=== PATIENT | female | born 1990 | race Caucasian/White ===

== ENCOUNTER 2020-10-12 22:55 | Emergency (ER) | payer MEDICAID, OTHER ==
--- NOTE | 2020-10-12 23:39 | EDM.PDOC ---
ED HPI GENERAL MEDICAL PROBLEM - General Chief Complaint: Back Pain or Injury Time Seen by Provider: 10/12/20 23:28 - History of Present Illness INITIAL COMMENTS - FREE TEXT/NARRATIVE: History of present illness: [] Patient fell and injured her low back especially on the right side. It occurred 3 days ago. It was a trip. She did not pass out. She has no other injury. She has no neurologic complaint but there is a hot feeling in her back with pain is worse with movement. It is gradually progressive over the last 3 days. She is no longer adhering to her gabapentin regimen for neuropathy because she has moved. She is on an insulin pump for diabetes. The pain radiates down her right hip. Review of systems: As per history of present illness and below otherwise all systems reviewed and negative. Past medical history: As per history of present illness and as reviewed below otherwise noncontributory. Surgical history: As per history of present illness and as reviewed below otherwise noncontributory. Social history: No reported history of drug or alcohol abuse. Family history: As per history of present illness and as reviewed below otherwise noncontributory. Physical exam: Constitutional - well developed, well-nourished and in no acute distress HEENT - normocephalic, no evidence of trauma - external nose and mouth normal - no mass in neck and no JVD - mucosae moist EYES - full EOM, PERRL, no icterus - no evidence of inflammation, injection, or drainage Respiratory - no respiratory distress, equal bilateral expansion, lungs clear to auscultation and no abnormal lung sounds Cardiovascular - Regular Rhythm with S1 and S2 appreciated and no murmur, gallop or rub. GI - abdomen soft without distension or organomegaly - normal bowel sounds - no guard or rebound Musculoskeletal straight leg raise of the right leg causes pain right lower back. Left leg does not cause any crossover. No gross deformity of long bones or joints - no tenderness, swelling or edema Neurologic -DTR right equal left. Whenever said that alert and oriented times four - CN II-XII grossly intact - motor sensory and coordination symmetrically normal Psychiatric - appropriate mood and affect with normal thought content Hematologic - No petechiae or purpura - mucosa appropriate color and sclera not pale - normal nail bed color and refill Integument - no rash or evidence of trauma - normal turgor Diagnostics: [] Therapeutics: [] Impression: [] Plan: [] Definitive disposition and diagnosis as appropriate pending reevaluation and review of above. back Pain Score (Numeric/FACES): 8 - Related Data Allergies Allergy/AdvReac Type Severity Reaction Status Date / Time promethazine HCl Allergy Seizure Verified 10/12/20 23:26 [From Phenergan] Sulfa (Sulfonamide Allergy Swelling Verified 10/12/20 23:26 Antibiotics) Home Meds: Home Meds Subcutaneous Insulin Pump [Insulin Pump] 1 each MC ASDIRECTED 10/01/13 [History] Acetaminophen/oxyCODONE [Percocet 325-10 MG] 1 - 2 tab PO Q6H PRN #14 tab 10/13/20 [Rx] diazePAM [Valium] 5 mg PO TID PRN #15 tab 10/13/20 [Rx] methylPREDNISolone [Medrol Dose Pack] 4 mg PO DAILY #21 tab 10/13/20 [Rx] Past Medical History HEENT History: Reports: None Cardiovascular History: Reports: None Respiratory History: Reports: None Gastrointestinal History: Reports: None Genitourinary History: Reports: None PLANNING CONSULTANT History: Reports: None Musculoskeletal History: Reports: None Neurological History: Reports: None Psychiatric History: Reports: None Endocrine/Metabolic History: Reports: Diabetes, Type I 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 ED EXAM, GENERAL - Physical Exam Exam: See Below (Okay signing trying to finish my chart my chart on one is complete okay so threes transfer okay except this year. A big burden thank you there is no light right flank pain radiating to groin she refused a blood pressure my physical exam is in the HPI she is okay taking the [place] because of her prio) Free Text/Narrative:: My physical exam is in the HPI Course - Vital Signs Last Recorded V/S: Last Vital Signs Temp 36.2 C 10/12/20 23:25 Pulse 96 10/12/20 23:25 Resp 18 10/12/20 23:25 BP 121/91 H 10/12/20 23:25 Pulse Ox 97 10/12/20 23:25 - Orders/Labs/Meds Labs: Laboratory Tests 10/12/20 10/12/20 Range/Units 21:30 21:30 Urine Color YELLOW Urine Appearance CLEAR Urine pH 5.5 (5.0-8.0) Ur Specific [place] 1.015 (1.001-1.035) Urine Protein NEGATIVE (NEGATIVE) mg/dL Urine Glucose (UA) >=1000 (NEGATIVE) mg/dL Urine Ketones 15 H (NEGATIVE) mg/dL Urine Occult Blood NEGATIVE (NEGATIVE) Urine Nitrite NEGATIVE (NEGATIVE) Urine Bilirubin NEGATIVE (NEGATIVE) Urine Urobilinogen 0.2 (<2.0) EU/dL Ur Leukocyte Esterase NEGATIVE (NEGATIVE) Urine RBC 0-2 (0-2/HPF) Urine WBC 1-3 (0-5/HPF) Ur Epithelial Cells FEW (NONE-FEW) Urine Bacteria FEW (NEGATIVE) Urine Mucus LIGHT (NONE-MOD) Urine HCG, Qual NEGATIVE (NEGATIVE) Meds: Medications Discontinued Medications Generic Name Dose Route Start Last Admin Trade Name Freq PRN Reason Stop Dose Admin Diazepam 5 mg 10/13/20 01:45 Diazepam 2 Mg Tab PO 10/13/20 01:46 ONETIME ONE Gabapentin 300 mg 10/12/20 23:46 10/13/20 00:28 Gabapentin 300 Mg Cap PO 10/12/20 23:47 300 mg ONETIME ONE Administration Ketorolac Tromethamine 30 mg 10/12/20 23:46 10/13/20 00:01 Ketorolac 30 Mg/Ml Sdv IM 10/12/20 23:47 30 mg ONETIME ONE Administration Oxycodone/Acetaminophen 1 tab 10/13/20 01:45 Acetaminophen/Oxycodone 325-10 Mg Tab PO 10/13/20 01:46 ONETIME ONE Departure - Departure Time of Disposition: 02:05 Disposition: Home, Self-Care 01 Clinical Impression: Back contusion, Contusion, hip - Discharge Information Prescriptions: methylPREDNISolone [Medrol Dose Pack] 4 mg PO DAILY #21 tab Acetaminophen/oxyCODONE [Percocet 325-10 MG] 1 - 2 tab PO Q6H PRN #14 tab PRN Reason: Pain (Severe 7-10) diazePAM [Valium] 5 mg PO TID PRN #15 tab PRN Reason: Headache Instructions: Muscle Strain, [id number], Contusion, [id number] Referrals: PCP,Not In Area [Primary Care Provider] - Forms: ED Department Discharge Additional Instructions: [facility] [address] [place] [address] [facility] [address] [place] [id number] The following information is given to patients seen in the emergency department who are being discharged to home. This information is to outline your options for follow-up care. We provide all patients seen in our emergency department with a follow-up referral. The need for follow-up, as well as the timing and circumstances, are variable depending upon the specifics of your emergency department visit. If you don't have a primary care physician on staff, we will provide you with a referral. We always advise you to contact your personal physician following an emergency department visit to inform them of the circumstance of the visit and for follow-up with them and/or the need for any referrals to a consulting specialist. The emergency department will also refer you to a specialist when appropriate. This referral assures that you have the opportunity for follow-up care with a specialist. All of these measure are taken in an effort to provide you with optimal care, which includes your follow-up. Under all circumstances we always encourage you to contact your private physician who remains a resource for coordinating your care. When calling for follow-up care, please make the office aware that this follow-up is from your recent emergency room visit. If for any reason you are refused follow-up, please contact the [facility] Emergency Department at and asked to speak to the emergency department charge nurse. Sepsis Event Note (ED) - Evaluation Sepsis Screening Result: No Definite Risk - Focused Exam Vital Signs: Vital Signs Temp Pulse Resp BP Pulse Ox 10/12/20 23:25 36.2 C 96 18 121/91 H 97
[2020-10-12] MEDS ORDERED: Ketorolac 30 MG/ML SDV IM ONE (23:46)
[2020-10-12] MEDS ORDERED: Gabapentin 300 MG Cap PO ONE (23:46)
--- NOTE | 2020-10-13 01:10 | CR ---
HISTORY: Pain after injury. COMPARISON: None available. FINDINGS: A single erect AP view of the pelvis shows no sign of fracture or dislocation. The hips are normal in appearance with no significant degenerative changes. The inferior lumbar spine is normal in appearance. There is a moderate amount of fecal material distributed throughout the inferior colon and rectum consistent with constipation. There is a metallic structure located in the superior right labial region, consistent with a labial piercing. IMPRESSION: No sign of osseous injury. Findings suggesting constipation. Dictated by Phillip Boone MD @ 10/13/2020 1:08:[address] Phillip Boone @ Oct 13 2020 1:08AM
--- NOTE | 2020-10-13 01:12 | CR ---
HISTORY: Pain after injury. COMPARISON: None available. FINDINGS: The lumbar spine was examined in the upright position with AP, lateral, and lateral spot views for a total of three views. There is minimal scoliosis of the lumbar spine convex towards the right. There is no sign of fracture or subluxation. The vertebral bodies are normal in height and they are in anatomic alignment. The disc spaces are normal in height as well. The visualized bony pelvis is normal in appearance. There is a moderate amount of fecal material distributed throughout the colon and rectum consistent with constipation. A curvilinear metallic density in the right periumbilical region is consistent with an umbilical piercing. IMPRESSION: No sign of acute osseous injury. Minimal scoliosis of the lumbar spine convex towards the right. Findings suggesting constipation. Dictated by Phillip Boone MD @ 10/13/2020 1:11:[address] Phillip Boone @ Oct 13 2020 1:11AM
[2020-10-13] MEDS ORDERED: Acetaminophen/oxyCODONE 325-10 MG Tab PO ONE (01:45)
[2020-10-13] MEDS ORDERED: Diazepam 2 MG Tab PO ONE (01:45)
== END 2020-10-13 02:20 | disposition home or self-care (01) ==
LOC: MW.ED 22:55
DX: S30.0XXA Contusion of lower back and pelvis, initial encounter (principal); S70.00XA Contusion of unspecified hip, initial encounter; E10.9 Type 1 diabetes mellitus without complications; Z88.8 Allergy status to other drugs, medicaments and biological substances; Z88.2 Allergy status to sulfonamides; W19.XXXA Unspecified fall, initial encounter
CPT/HCPCS: 72100; 72170; 81001; 81025; 96372; 99283; A9270; J1885

== ENCOUNTER 2021-03-24 18:33 | Emergency (ER) | payer MEDICAID ==
[2021-03-24] MEDS ORDERED: Ibuprofen 600 MG Tab PO ONE (18:49)
[2021-03-24] MEDS ORDERED: Sodium Chloride 0.9% 10 ML Syringe FLUSH PRN (18:49)
[2021-03-24] MEDS ORDERED: Sodium Chloride 0.9% 2.5 ML Syringe FLUSH PRN (18:49)
[2021-03-24] MEDS ORDERED: Sodium Chloride 0.9% 1,000 ML IV ONE (18:49)
[2021-03-24 19:14] LABS: BLOOD UREA NITROGEN,BUN 19 mg/dL (7.0-18.0); CARBON DIOXIDE,CO2 24.4 mmol/L (21.0-32.0); CHLORIDE,CL 105 mmol/L (98-107); GLUCOSE RANDOM 177 mg/dL (74-106); POTASSIUM,K 3.7 mmol/L (3.5-5.1); SODIUM,NA 141 mmol/L (136-145)
--- NOTE | 2021-03-24 19:43 | CT ---
INDICATION: Seizure, trauma. TECHNIQUE: CT head without contrast. COMPARISON: None. FINDINGS: CSF spaces: Within normal limits for age. Brain parenchyma and extra-axial spaces: The riggs-white differentiation is normal. No sign of mass, hemorrhage, or midline shift. No extra-axial fluid collection. Skull base and calvarium: The visualized paranasal sinuses and mastoid air cells demonstrate no acute or significant findings. The visualized orbits are grossly unremarkable. No skull fractures. IMPRESSION: Unremarkable noncontrast head CT. Please note that all CT scans at this facility use dose modulation, iterative reconstruction, and/or weight-based dosing when appropriate to reduce radiation dose to as low as reasonably achievable. Dictated by Dennys John MD @ 03/24/2021 7:42:48 PM (Electronically Signed)
--- NOTE | 2021-03-24 19:43 | CT ---
INDICATION: Seizure, trauma. TECHNIQUE: CT cervical spine without contrast. COMPARISON: None. FINDINGS: Vertebrae: Alignment is normal. There are no fractures or suspicious bony lesions. Discs and facet joints: Disc spaces and facets are within normal limits. Extraspinal findings: Prevertebral soft tissues, visualized airway, and visualized lungs are unremarkable. IMPRESSION: Unremarkable cervical spine CT. Please note that all CT scans at this facility use dose modulation, iterative reconstruction, and/or weight-based dosing when appropriate to reduce radiation dose to as low as reasonably achievable. Dictated by Dennys John MD @ 03/24/2021 7:40:59 PM (Electronically Signed)
[2021-03-24] MEDS ORDERED: Acetaminophen 500 MG Tab PO ONE (19:46)
== END 2021-03-24 21:13 | disposition home or self-care (01) ==
LOC: MW.ED 18:33
DX: E10.649 Type 1 diabetes mellitus with hypoglycemia without coma (principal); E03.9 Hypothyroidism, unspecified; Z88.2 Allergy status to sulfonamides; Z88.8 Allergy status to other drugs, medicaments and biological substances
CPT/HCPCS: 36415; 70450; 72125; 80053; 80305; 80307; 82947; 84703; 85025; 93005; 99285; A9270; J7030

== ENCOUNTER 2021-05-19 01:51 | Observation (INO) | payer MEDICAID ==
[2021-05-19] MEDS ORDERED: Sodium Chloride 23.4% 154 MEQ in Dextrose 10% in Water 1,000 ML IV SCH ×2 (02:00)
[2021-05-19] MEDS ORDERED: 50% Dextrose in Water 50 ML Syringe IVPUSH ONE (02:17)
[2021-05-19] MEDS ORDERED: 50% Dextrose in Water 50 ML Syringe ONE (02:18)
[2021-05-19 03:54] LABS: BLOOD UREA NITROGEN,BUN 29 mg/dL (7.0-18.0); CARBON DIOXIDE,CO2 25.2 mmol/L (21.0-32.0); CHLORIDE,CL 101 mmol/L (98-107); GLUCOSE RANDOM 214 mg/dL (74-106); POTASSIUM,K 4.1 mmol/L (3.5-5.1); SODIUM,NA 138 mmol/L (136-145)
[2021-05-19] MEDS ORDERED: Ondansetron 4 MG/2 ML SDV IVPUSH PRN (07:39)
[2021-05-19] MEDS ORDERED: Insulin Aspart 100 Units/ML 3 ML Pen SUBCUT SCH (08:01)
[2021-05-19] MEDS ORDERED: 50% Dextrose in Water 50 ML Syringe IVPUSH PRN (08:01)
[2021-05-19] MEDS ORDERED: Glucagon,Human Recombinant 1 MG Vial IM PRN (08:01)
[2021-05-19] MEDS ORDERED: Acetaminophen 325 MG Tab PO PRN (08:03)
[2021-05-19] MEDS ORDERED: Sodium Chloride 0.9% 2.5 ML Syringe FLUSH PRN (08:03)
[2021-05-19] MEDS ORDERED: Sodium Chloride 0.9% 10 ML Syringe FLUSH PRN (08:03)
[2021-05-19] MEDS: Lactated Ringers 1,000 ML IV SCH ×2 (08:05→16:16)
[2021-05-19] MEDS: Acetaminophen/HYDROcodone 325-10 MG Tab PO PRN ×2 (10:30→21:18)
[2021-05-19] MEDS: Cyclobenzaprine 10 MG Tab PO PRN ×2 (10:33→21:16)
[2021-05-19] MEDS: Topiramate 100 MG Tab PO SCH ×2 (10:33→21:41)
[2021-05-19] MEDS: Sertraline 100 MG Tab PO SCH (10:34)
[2021-05-19] MEDS: buPROPion 150 MG Tab.ER PO SCH (10:34)
[2021-05-19] MEDS: Insulin Aspart 100 Units/ML 3 ML Pen SUBCUT SCH ×2 (12:18→18:00)
[2021-05-19] MEDS ORDERED: AMPHETAMINE PO SCH (18:00)
[2021-05-19] MEDS ORDERED: DEXTROAMPHETAMINE PO SCH (18:00)
[2021-05-19] MEDS: metFORMIN 500 MG Tab PO SCH (21:22)
[2021-05-20] MEDS: Lactated Ringers 1,000 ML IV SCH ×2 (00:29→08:57)
[2021-05-20] MEDS ORDERED: Levothyroxine 25 MCG Tab PO SCH (07:30)
[2021-05-20 08:00] LABS: BLOOD UREA NITROGEN,BUN 16 mg/dL (7.0-18.0); CARBON DIOXIDE,CO2 24.3 mmol/L (21.0-32.0); CHLORIDE,CL 105 mmol/L (98-107); GLUCOSE RANDOM 134 mg/dL (74-106); SODIUM,NA 140 mmol/L (136-145)
[2021-05-20] MEDS: Sertraline 100 MG Tab PO SCH (08:12)
[2021-05-20] MEDS: buPROPion 150 MG Tab.ER PO SCH (08:12)
[2021-05-20] MEDS: Topiramate 100 MG Tab PO SCH (08:12)
[2021-05-20] MEDS: metFORMIN 500 MG Tab PO SCH (08:13)
[2021-05-20] MEDS: Acetaminophen/HYDROcodone 325-10 MG Tab PO PRN (08:14)
[2021-05-20] MEDS ORDERED: DEXTROAMPHETAMINE PO SCH (09:00)
[2021-05-20] MEDS ORDERED: AMPHETAMINE PO SCH (09:00)
[2021-05-20] MEDS: Insulin Aspart 100 Units/ML 3 ML Pen SUBCUT SCH ×2 (09:01→11:15)
== END 2021-05-20 14:40 | disposition home or self-care (01) ==
LOC: MW.ED 01:51 → MW.MS 05:06
PROVIDERS: ADMIT Student in an Organized Health Care Education/Training Program; ATTEND Student in an Organized Health Care Education/Training Program
DX: G40.909 Epilepsy, unspecified, not intractable, without status epilepticus (principal); E10.649 Type 1 diabetes mellitus with hypoglycemia without coma; F90.9 Attention-deficit hyperactivity disorder, unspecified type; E03.9 Hypothyroidism, unspecified; G89.29 Other chronic pain; E10.43 Type 1 diabetes mellitus with diabetic autonomic (poly)neuropathy; K31.84 Gastroparesis; E10.42 Type 1 diabetes mellitus with diabetic polyneuropathy; E10.319 Type 1 diabetes mellitus with unspecified diabetic retinopathy without macular edema; Z88.2 Allergy status to sulfonamides; Z88.8 Allergy status to other drugs, medicaments and biological substances; Z79.890 Hormone replacement therapy; Z79.84 Long term (current) use of oral hypoglycemic drugs; Z79.4 Long term (current) use of insulin; Z79.899 Other long term (current) drug therapy; Z20.822 Contact with and (suspected) exposure to COVID-19
CPT/HCPCS: 36415; 80048; 80053; 82947; 83605; 83735; 85025; 87635; 96374; 96375; 99285; A9270; G0378; J1815; J2405; J7120; U0002

== ENCOUNTER 2021-06-22 07:27 | Emergency (ER) | payer MEDICAID ==
[2021-06-22] MEDS ORDERED: diphenhydrAMINE 50 MG/ML SDV IVPUSH ONE (07:36)
[2021-06-22] MEDS ORDERED: Metoclopramide 10 MG/2 ML SDV IVPUSH ONE (07:36)
[2021-06-22 08:07] LABS: BLOOD UREA NITROGEN,BUN 18 mg/dL (7.0-18.0); CARBON DIOXIDE,CO2 23.4 mmol/L (21.0-32.0); CHLORIDE,CL 98 mmol/L (98-107); GLUCOSE RANDOM 357 mg/dL (74-106); POTASSIUM,K 4.2 mmol/L (3.5-5.1); SODIUM,NA 134 mmol/L (136-145)
[2021-06-22] MEDS ORDERED: Acetaminophen 325 MG Tab PO ONE (08:39)
== END 2021-06-22 09:58 | disposition home or self-care (01) ==
LOC: MW.ED 07:27
DX: R41.82 Altered mental status, unspecified (principal); R56.9 Unspecified convulsions; E10.9 Type 1 diabetes mellitus without complications; Z79.84 Long term (current) use of oral hypoglycemic drugs; Z88.2 Allergy status to sulfonamides; Z88.8 Allergy status to other drugs, medicaments and biological substances
CPT/HCPCS: 36415; 80053; 80305; 80307; 82550; 83735; 84100; 84703; 85025; 85610; 85730; 96374; 96375; 99285; A9270; J1200; J2765